=== PATIENT | female | born 1980 | race Caucasian/White ===

== ENCOUNTER → 2018-02-01 09:20 | Outpatient (CLI) | payer MEDICAID ==
[~2018-02-01 09:20] MED LIST: PRENATAL COMPLE1 TAB PO
[2018-02-01 11:09] LABS: APPEARANCE HAZY (CLEAR); BILIRUBIN NEGATIVE (NEGATIVE); COLOR YELLOW (YELLOW); GLUCOSE NEGATIVE (NEGATIVE); KETONE NEGATIVE (NEGATIVE); NITRITE NEGATIVE (NEGATIVE); PROTEIN NEGATIVE (NEGATIVE); UROBILINOGEN NORMAL (NORMAL)
[2018-02-01 11:11] LABS: BACTERIA MANY /hpf (NONE SEEN); EPITHELIAL CELLS 0-5 /hpf (0-5); MUCUS <1+ /lpf (NONE SEEN); RED CELLS - URINE RARE /hpf (0-5); WHITE CELLS - URINE 0-5 /hpf (0-5)
== END | disposition home or self-care (01) ==
LOC: D.LDO 09:20
PROVIDERS: Obstetrics & Gynecology
DX: O26.892 Other specified pregnancy related conditions, second trimester (principal); Z3A.26 26 weeks gestation of pregnancy; R10.9 Unspecified abdominal pain; R11.2 Nausea with vomiting, unspecified

== ENCOUNTER → 2018-02-21 10:01 | Outpatient (CLI) | payer MEDICAID ==
[~2018-02-21 10:01] MED LIST changes: +NIFEDIPINE ER30 MG
[2018-04-22 19:51] VITALS: BMI 30.2
== END | disposition home or self-care (01) ==
LOC: D.US 10:01
DX: O09.90 Supervision of high risk pregnancy, unspecified, unspecified trimester (principal); Z3A.00 Weeks of gestation of pregnancy not specified; R10.9 Unspecified abdominal pain

== ENCOUNTER 2018-04-15 16:36 | Inpatient (IN) | payer MEDICAID ==
[~2018-04-15] VITALS: Ht 157.5 cm; Wt 74.8 kg
--- NOTE | ~2018-04-15 | OP ---
PATIENT NAME: LATHA OLMEDO MEDICAL RECORD: [id number] :82 LOCATION:[facility]1273 ADMISSION DATE:04/15/18 SURGEON: COREY LOPEZ MD DATE OF OPERATION: 04/15/2018 PREOPERATIVE DIAGNOSIS: Severe preeclampsia, remote from delivery. POSTOPERATIVE DIAGNOSES: 1. Severe preeclampsia, remote from delivery. 2. True knot in umbilical cord. PROCEDURE: A primary low transverse section with vacuum assist and distal bilateral salpingectomy. SURGEON: Corey Lopez MD ANESTHESIA: Regional via spinal. INTRAVENOUS FLUIDS: Per anesthesia record. ESTIMATED BLOOD LOSS: 1000 cc. FINDINGS: 1. Viable . 2. Placenta delivered manually intact, 3-vessel cord was noted. A true knot in the cord was also noted. 3. Grossly normal adnexa bilaterally. SPECIMENS: Placenta, cord for gases and bilateral tubal segments. COMPLICATIONS: None apparent. PROCEDURE: The patient was taken to the operating room where regional anesthesia was achieved without difficulty. The patient was then prepped and draped in normal sterile fashion in the dorsal supine position. SCDs were on and functioning normally. Reinoso catheter had been placed and was draining freely. Following prep and drape and testing of the regional anesthesia, a Pfannenstiel skin incision was made, extended downward to the underlying subcutaneous fat to the level of the fascia. Fascia was then excised in the midline and extended bilaterally using the Shin scissors. Superior and inferior aspects of the fascial incision were then grasped with Millicent clamps times 2, tented upward, and sharply dissected from the underlying rectus muscle using the Bovie cautery and Shin scissors. The rectus muscles were then bluntly in the midline and the peritoneum entered sharply at the superior aspect of the incision using the Metzenbaum scissors. The peritoneal incision was extended bilaterally and a bladder blade was placed into the pelvis. The bladder flap was created by excising the anterior leaf of the broad ligament across the lower uterine segment and the bladder was gently dissected downward. A low transverse incision was made in the uterus and extended using the Pelosi method. The vertex was found to be extended. A vacuum was placed on the right occiput with correction to head flexion and delivery of the vertex. No pop offs, no traction was placed on the neck and no scalp injury was noted upon delivery of the head, the vacuum was removed. The rest of the body was delivered atraumatically. The was bulb suctioned. Cord was clamped times 2, cut, and infant was handed to the awaiting nursery team. Cord was then OPERATIVE REPORT [id number] LATHA OLMEDO obtained for gases and the placenta was delivered manually intact. A true knot was noted in the umbilical cord. Uterus was then exteriorized, cleared of all clots and debris and vigorously massaged until good uterine tone was noted. The uterine incision was then repaired with 0 Vicryl in a running locked fashion times 2 with good hemostasis noted. Posterior cul-de-sac was then thoroughly irrigated. Attention was then turned to the fallopian tubes. A defect was made in the mesosalpinx and a Martha clamp was placed across the mesosalpinx adjacent to the distal end of the tube and then across the midportion of the tube. The distal half of the tube including the fimbria was then removed bilaterally and the tubal stump and mesosalpinx was then sewn times 2 with 2-0 Vicryl with good hemostasis noted. The uterine incision and tubal surgical sites were then thoroughly checked for hemostasis. The uterus was returned to the pelvis. The anterior cul-de-sac was then thoroughly irrigated. Counts were correct times 2 for needles, sponges, and instruments. The fascia was repaired with 0 loop PDS times 1 and the skin was repaired with mendez. The patient tolerated the procedure well and was transported to postanesthesia recovery stable without incident. TRANSINT:[id number] Voice Confirmation ID: [id number] DOCUMENT ID: [id number] COREY LOPEZ MD at 1754 CC: [id number] DICTATION DATE: 04/28/18 0733 CAT SCAN TECHNOLOGIST: 04/28/18 0832 DIS IN 04/18/18 [facility] [address] [id number]
--- NOTE | ~2018-04-15 | DS ---
PATIENT:LATHA OLMEDO :82 MEDICAL RECORD: [id number] DISCHARGE SUMMARY ADMISSION DATE: 04/15/18 DISCHARGE DATE: 04/18/18 HOSPITAL COURSE: The patient was admitted on 04/15/2018. A 37-year-old G2, P1 at 37 weeks and 2 days. The patient presented to labor and delivery or reporting cramping. The patient was noted to be A positive, group B strep negative, and rubella nonimmune. Upon admission, the patient was not have blood pressures as high as 193/113. The patient was given 20 mg of IV labetalol. Labs were obtained. No evidence of HELLP syndrome; however, the patient was noted to be significantly anemic with a hemoglobin of 8. Cervical exam was found to not be favorable and the discussion was made with the patient the need to proceed with due to extremely high blood pressures. PAST MEDICAL HISTORY: 1. Significant for A1 gestational diabetes. 2. Anemia. 3. Advanced maternal age. 4. Severe gestational hypertension/preeclampsia. PAST SURGICAL HISTORY: The patient reported no significant past surgical history. ALLERGIES: The patient reported medications taking vitamins. FAMILY HISTORY: The patient reported no known allergies. FAMILY HISTORY: The patient reported no significant family history. SOCIAL HISTORY: The patient reported social history negative times 3. PHYSICAL EXAMINATION: VITAL SIGNS: On initial assessment, blood pressure is found to be extremely labile and elevated as mentioned to the 190s/110s. LUNGS: Clear to auscultation. CARDIOVASCULAR: Regular rate and rhythm. PELVIC: Uterus was appropriately sized and nontender. EXTREMITIES: Lower extremities are free of Homans sign, erythema, or swelling. LABORATORY DATA: Blood work was initially found to be normal. No evidence of HELLP syndrome. Hemoglobin as mentioned was noted to be 8 and plans made at that time immediately to proceed with transfusion. The patient with 2+ proteinuria, making the diagnosis likely to be severe preeclampsia. wellbeing was reassuring with a category 1 tracing. ASSESSMENT AND PLAN: On admission; 1. Severe preeclampsia. 2. Advanced maternal age. 3. Term intrauterine at 37 weeks. 4. A1 gestational diabetes. The patient as mentioned was given 20 mg of IV labetalol and started on blood transfusion. One concern was that the hemoglobin of 8 was likely an over estimation due to hemoconcentration, which is often accompanying severe preeclampsia. The patient was given 1 unit of packed red cells and blood DISCHARGE SUMMARY REPORT [id number] LATHA OLMEDO pressures remained extremely elevated, so the second unit was transfused intraoperatively during the . was performed with tubal ligation. Operative report is as dictated. The patient was given multiple doses of IV medication for blood pressure intraoperatively. Overnight, on day #0, the patient was started on magnesium sulfate therapy for seizure prophylaxis. The patient was given sips of clear liquids. Reinoso catheter remained and the patient was noted to have normal urine output. SCDs were on and functioning normally. Overnight, the patient with a Dilaudid EMERGENCY DEPARTMENT RN, IV Toradol. Blood pressures remained stable overnight. On the morning of postop day #1, the patient was tolerating magnesium sulfate well. The patient with continuing elevated blood pressures and was started on p.o. labetalol. The patient at that time was advanced to p.o. pain meds and continued on magnesium sulfate. When diuresis was found to be adequate on postop day #1, magnesium sulfate was discontinued. The patient was advanced to general diet as hemoglobin was found to be stable. Reinoso catheter was discontinued and ambulation begun and the patient continued to improve with blood pressures out of the severe range on p.o. labetalol. On morning of postop day #2, the patient continued to do well. Blood pressure was stable on labetalol. The patient was noted to have a few blood pressures that were at the low end of normal. The patient was decreased from 200 mg t.i.d. to 100 mg t.i.d. The incision was clean, dry and intact. Uterus was infraumbilical and appropriately tender. The patient otherwise tolerating general diet and p.o. pain meds. On the evening of postop day #2, the patient was found to have good blood pressure control on the current labetalol regimen, tolerating p.o. pain meds. The patient was discharged home on postoperative day #2 with instructions for return in few days for staple removal and blood pressure check. TRANSINT:[id number] Voice Confirmation ID: [id number] DOCUMENT ID: [id number] DOTTIE HOFFMAN MD at 1754 CC: [id number] DICTATION DATE: 04/28/18 0739 COST CONSULTANT: 04/29/18 0509 DIS IN 04/18/18 [facility] [address] [facility] [place] [id number]
[~2018-04-15 16:36] MED LIST changes: -NIFEDIPINE ER30 MG
[2018-04-15 17:50] LABS: APPEARANCE SL CLDY (CLEAR); BILIRUBIN NEGATIVE (NEGATIVE); COLOR DK YELLOW (YELLOW); GLUCOSE NEGATIVE (NEGATIVE); KETONE NEGATIVE (NEGATIVE); NITRITE NEGATIVE (NEGATIVE); PROTEIN 3+ mg/dL (NEGATIVE); UROBILINOGEN NORMAL (NORMAL)
[2018-04-15 17:51] LABS: BASOPHILS 0.1 % (0-2); EOSINOPHILS 0.9 % (0-7); HEMATOCRIT 28.1 % (36.0-48.0); IMMATURE GRANULOCYTES 0.4 % (0-5); LYMPHOCYTES 16.8 % (15-50); MCH 18.7 pg (26.0-34.0); MCHC 28.5 g/dL (31.0-37.0); MCV 65.7 fL (80.0-100.0); MONOCYTES 5.2 % (2-11); NEUTROPHILS 76.6 % (40-80); PLATELET COUNT 173 10x3/uL (130-400); RBC 4.28 10x6/uL (4.00-5.40); RDW 17.8 % (11.5-14.5)
[2018-04-15 17:54] LABS: BACTERIA MODERATE /hpf (NONE SEEN); RED CELLS - URINE 0-5 /hpf (0-5)
[2018-04-15 17:55] LABS: HYALINE CAST RARE /lpf (NONE SEEN); MUCUS >1+ /lpf (NONE SEEN)
[2018-04-15 17:56] LABS: UDS - AMPHET NEGATIVE QUAL (NEGATIVE); UDS - BARB NEGATIVE QUAL (NEGATIVE); UDS - BENZO NEGATIVE QUAL (NEGATIVE); UDS - COCAINE NEGATIVE QUAL (NEGATIVE); UDS - OPIATE NEGATIVE QUAL (NEGATIVE); UDS - PCP NEGATIVE QUAL (NEGATIVE); UDS - THC NEGATIVE QUAL (NEGATIVE)
[2018-04-15 18:12] LABS: ALBUMIN 2.1 g/dL (3.4-5.0); ALKALINE PHOSPHATASE 107 U/L (46-116); ALT (SGPT) 19 U/L (10-68); BILIRUBIN - DIRECT 0.24 mg/dL (0.00-0.30); BILIRUBIN - INDIRECT 0.61 mg/dL (0.00-1.00); BILIRUBIN - TOTAL 0.85 mg/dL (0.2-1.3); CALC OSMOLALITY 269 mosm/kg (275-300); CALCIUM 7.7 mg/dL (8.5-10.1); CARBON DIOXIDE 25.5 mmol/L (21.0-32.0); CHLORIDE - SERUM 106 mmol/L (98-107); CREATININE - SERUM 0.5 mg/dL (0.6-1.3); GLUCOSE 105 mg/dL (74-106); POTASSIUM - SERUM 4.2 mmol/L (3.5-5.1); PROTEIN - SERUM 5.2 g/dL (6.4-8.2); SODIUM 136 mmol/L (136-145); UREA NITROGEN 6 mg/dL (7-18); URIC ACID 4.3 mg/dL (2.6-7.2); eGFR NON AFRICAN AMERICAN > 90 mL/min (90-120)
[2018-04-15 18:14] VITALS: BP 170/84; Ht 157.5 cm; Wt 74.8 kg
[2018-04-15 21:28] VITALS: BP 179/95
[2018-04-16 02:25] LABS: BASOPHILS 0.1 % (0-2); EOSINOPHILS 0 % (0-7); HEMATOCRIT 32.8 % (36.0-48.0); HEMOGLOBIN 9.6 g/dL (12-16); IMMATURE GRANULOCYTES 0.4 % (0-5); LYMPHOCYTES 5.9 % (15-50); MCHC 29.3 g/dL (31.0-37.0); MONOCYTES 6.3 % (2-11); NEUTROPHILS 87.3 % (40-80); PLATELET COUNT 167 10x3/uL (130-400); RBC 4.82 10x6/uL (4.00-5.40); RDW 20.8 % (11.5-14.5); WBC 16.5 10x3/uL (4.8-10.8)
[2018-04-16 02:26] LABS: MCH 19.9 pg (26.0-34.0)
[2018-04-16 06:56] LABS: BASOPHILS 0.1 % (0-2); EOSINOPHILS 0.1 % (0-7); HEMATOCRIT 28.9 % (36.0-48.0); HEMOGLOBIN 8.6 g/dL (12-16); IMMATURE GRANULOCYTES 0.3 % (0-5); MCHC 29.8 g/dL (31.0-37.0); MCV 67.4 fL (80.0-100.0); MONOCYTES 6.4 % (2-11); NEUTROPHILS 85.1 % (40-80); PLATELET COUNT 152 10x3/uL (130-400); RBC 4.29 10x6/uL (4.00-5.40); RDW 20.8 % (11.5-14.5); WBC 14.3 10x3/uL (4.8-10.8)
[2018-04-16 19:24] VITALS: BP 123/75
[2018-04-16 20:24] VITALS: BP 143/81
[2018-04-16 21:24] VITALS: BP 136/79
[2018-04-16 22:24] VITALS: BP 121/74
[2018-04-16 23:24] VITALS: BP 119/81
[2018-04-17] VITALS (7 sets, daily range): BP systolic 122–145; BP diastolic 71–83
[2018-04-17 07:31] LABS: RAPID PLASMA REAGIN Non Reactive (Non Reactive)
[2018-04-18 07:37] VITALS: BP 143/80
== END 2018-04-18 12:30 | disposition home or self-care (01) | DRG 766 ==
LOC: D.LDO 16:36 → D.LD 18:09
PROVIDERS: Obstetrics & Gynecology
PROC: 10D00Z1 Extraction of Products of Conception, Low, Open Approach (ICD-10-PCS; principal; 2018-04-15 18:11)
PROC: 0UB70ZZ Excision of Bilateral Fallopian Tubes, Open Approach (ICD-10-PCS; 2018-04-15 18:11)
DX: O14.14 Severe pre-eclampsia complicating childbirth (principal); O13.4 Gestational [pregnancy-induced] hypertension without significant proteinuria, complicating childbirth; O99.02 Anemia complicating childbirth; O24.429 Gestational diabetes mellitus in childbirth, unspecified control; Z37.0 Single live birth; Z3A.37 37 weeks gestation of pregnancy; Z30.2 Encounter for sterilization

== ENCOUNTER 2018-04-22 19:39 | Emergency (ER) | payer MEDICAID ==
[~2018-04-22] VITALS: Ht 157.5 cm; Wt 79.8 kg
[2018-04-22 19:51] VITALS: BP 179/101; Ht 157.5 cm; Wt 79.8 kg
[2018-04-22] MEDS ORDERED: NIFEDIPINE ER30 MG (19:53)
[2018-04-22 20:15] LABS: BASOPHILS 0.1 % (0-2); EOSINOPHILS 1.9 % (0-7); HEMATOCRIT 25.9 % (36.0-48.0); IMMATURE GRANULOCYTES 2.9 % (0-5); LYMPHOCYTES 10.2 % (15-50); MCHC 28.6 g/dL (31.0-37.0); MCV 69.8 fL (80.0-100.0); MEAN PLATELET VOLUME 9.8 fL (7.4-10.4); MONOCYTES 6.9 % (2-11); RBC 3.71 10x6/uL (4.00-5.40); RDW 21.4 % (11.5-14.5); WBC 8.4 10x3/uL (4.8-10.8)
[2018-04-22 20:35] LABS: ALBUMIN 2.4 g/dL (3.4-5.0); ALKALINE PHOSPHATASE 78 U/L (46-116); ALT (SGPT) 22 U/L (10-68); BILIRUBIN - TOTAL 0.71 mg/dL (0.2-1.3); CALC OSMOLALITY 275 mosm/kg (275-300); CALCIUM 8.5 mg/dL (8.5-10.1); CARBON DIOXIDE 27.6 mmol/L (21.0-32.0); CHLORIDE - SERUM 105 mmol/L (98-107); CREATININE - SERUM 0.6 mg/dL (0.6-1.3); GLUCOSE 106 mg/dL (74-106); PROTEIN - SERUM 6.4 g/dL (6.4-8.2); SODIUM 139 mmol/L (136-145); UREA NITROGEN 7 mg/dL (7-18); eGFR NON AFRICAN AMERICAN > 90 mL/min (90-120)
[2018-04-22 20:45] LABS: HEMOGLOBIN 7.4 g/dL (12-16); MCH 19.9 pg (26.0-34.0); PLATELET COUNT 242 10x3/uL (130-400)
[2018-04-22 20:56] LABS: APPEARANCE HAZY (CLEAR); BILIRUBIN NEGATIVE (NEGATIVE); COLOR YELLOW (YELLOW); GLUCOSE NEGATIVE (NEGATIVE); KETONE NEGATIVE (NEGATIVE); NITRITE NEGATIVE (NEGATIVE); PROTEIN TRACE mg/dL (NEGATIVE); UROBILINOGEN NORMAL (NORMAL)
[2018-04-22 20:57] LABS: EPITHELIAL CELLS 0-5 /hpf (0-5); RED CELLS - URINE 0-5 /hpf (0-5); WHITE CELLS - URINE >50 /hpf (0-5)
[2018-04-22 20:58] LABS: BACTERIA MODERATE /hpf (NONE SEEN)
== END 2018-04-22 22:17 | disposition left against medical advice (07) ==
LOC: D.ER 19:39
PROVIDERS: Family Medicine
DX: O90.89 Other complications of the puerperium, not elsewhere classified (principal); R50.9 Fever, unspecified; E11.9 Type 2 diabetes mellitus without complications; I10 Essential (primary) hypertension

== ENCOUNTER → 2018-05-01 13:14 | Outpatient (CLI) | payer MEDICAID ==
[2018-04-22 19:51] VITALS: BMI 30.2
[~2018-05-01 13:14] MED LIST changes: +NIFEDIPINE ER30 MG
[2018-05-01 13:50] LABS: CALC OSMOLALITY 274 mosm/kg (275-300); CALCIUM 8.6 mg/dL (8.5-10.1); CARBON DIOXIDE 25.8 mmol/L (21.0-32.0); CHLORIDE - SERUM 107 mmol/L (98-107); CREATININE - SERUM 0.7 mg/dL (0.6-1.3); GLUCOSE 87 mg/dL (74-106); POTASSIUM - SERUM 4.3 mmol/L (3.5-5.1); SODIUM 139 mmol/L (136-145); UREA NITROGEN 8 mg/dL (7-18); eGFR NON AFRICAN AMERICAN > 90 mL/min (90-120)
== END | disposition home or self-care (01) ==
LOC: D.LAB 13:14 → D.CT 13:14
PROVIDERS: Obstetrics & Gynecology
DX: O90.89 Other complications of the puerperium, not elsewhere classified (principal); R06.02 Shortness of breath